=== PATIENT | male | born 1970 | race African-American/Black ===

== ENCOUNTER 2017-08-13 05:15 | Emergency (ER) | payer OTHER ==
[2017-08-13 05:24] VITALS: BP 156/99
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
== END 2017-08-13 05:57 ==
LOC: ER 05:15
DX: S06.0X0A Concussion without loss of consciousness, initial encounter (principal); F17.200 Nicotine dependence, unspecified, uncomplicated; W01.10XA Fall on same level from slipping, tripping and stumbling with subsequent striking against unspecified object, initial encounter